=== PATIENT | male | born 1940 | race African-American/Black ===

== ENCOUNTER 2017-10-28 13:26 | Inpatient (IN) | payer OTHER ==
[~2017-10-28] VITALS: Ht 170.2 cm; Wt 93.6 kg
[2017-10-28] MEDS ORDERED: PIPERACILLIN/TAZO/PMX 3.375GM 50 ML IVPB ONE (14:00)
[2017-10-28] MEDS ORDERED: PLEASE ENTER ALLERGIES MC SCH (14:00)
[2017-10-28] MEDS ORDERED: SODIUM CHLORIDE 0.9% 1,000ML IVBOLUS ONE ×2 (14:00→21:30)
[2017-10-28 14:08] LABS: MD YES; MEAN CORPUSCULAR HEMOGLOBIN 28.8 pg (27.5-34.5); MEAN CORPUSCULAR HGB CONC 32.7 g/dL (33.2-36.2); MEAN CORPUSCULAR VOLUME 87.9 fL (81-97); MEAN PLATELET VOLUME 9.6 fL (7.4-10.4); PLATELET COUNT 141 x10^3/uL (130-400); RED BLOOD COUNT 5.53 x10^6/uL (4.38-5.82); RED CELL DISTRIBUTION WIDTH 14.7 % (9.4-14.8)
[2017-10-28 14:18] LABS: ALBUMIN 1.6 g/dL (3.4-5.0); ANION GAP 24 mmol/L (5-15); CALCIUM 8.3 mg/dL (8.5-10.1); CHLORIDE 93 mmol/L (98-107)
[2017-10-28 14:21] LABS: ALANINE AMINOTRANSFERASE 94 U/L (12-78); BILIRUBIN,TOTAL 7.4 mg/dL (0.2-1.0); CREATININE 3.07 mg/dL (0.7-1.3); TOTAL PROTEIN 6.3 g/dL (6.4-8.2)
[2017-10-28 14:22] LABS: ALKALINE PHOSPHATASE 663 U/L (45-117); CREATINE KINASE, TOTAL 94 U/L (39-308)
[2017-10-28 14:23] LABS: SALICYLATE LEVEL < 1.7 mg/dL (2.8-20.0)
[2017-10-28 14:24] LABS: ACETAMINOPHEN < 2 mcg/mL (10-30); TROPONIN I 0.158 ng/mL (0.000-0.045)
[2017-10-28 14:28] LABS: INTERNATIONAL NORMALIZED RATIO 1.23 (0.93-1.1); PROTHROMBIN TIME 12.6 Seconds (9.6-11.5)
[2017-10-28 14:30] LABS: ACETONE, SERUM Negative (Negative)
[2017-10-28] MEDS ORDERED: PIPERACILLIN/TAZO/PMX 3.375GM 50 ML ONE (14:33)
[2017-10-28] MEDS ORDERED: NS + 40MEQ KCL 1,000 ML IV ONE (14:37)
[2017-10-28 14:57] LABS: BANDS%(MANUAL) 29 % (0-7); LYMPH#(MANUAL) 0.35 x10^3/uL (1-3.4); LYMPHS% (MANUAL) 1 % (22-44); METAMYELOCYTES% (MANUAL) 2 % (0-1); MONOS% (MANUAL) 1 % (2-9); MYELOCYTES# (MANUAL) 0.35 x10^3/uL (0-0); MYELOCYTES% (MANUAL) 1 % (0-0); SEGS% (MANUAL) 66 % (42-75)
[2017-10-28 14:58] LABS: <RBC MORPHOLOGY> NORMAL; MONOS#(MANUAL) 0.35 x10^3/uL (0.3-2.7)
[2017-10-28 14:59] LABS: <PLATELET ESTIMATE> ADEQUATE; <PLT MORPHOLOGY> NORMAL PLT MORPH; PMNS WITH VACUOLES 1+; SMUDGE CELLS 1+; TOXIC GRAN 1+
[2017-10-28] MEDS: NS + 20MEQ KCL 1,000 ML IV SCH ×2 (14:59→18:58)
[2017-10-28] MEDS ORDERED: HEPARIN 5,000 UNITS/ML, 1ML SQ SCH (15:00)
[2017-10-28] MEDS ORDERED: SODIUM CHLORIDE 0.9%, 500ML IVBOLUS ONE (15:00)
[2017-10-28] MEDS ORDERED: NS + 40MEQ KCL 1,000 ML IV SCH (15:00)
[2017-10-28] MEDS ORDERED: PIPERACILLIN/TAZO 2.25 GM in SODIUM CHLORIDE 0.9% 50 ML IV SCH (15:00)
[2017-10-28] MEDS ORDERED: VANCOMYCIN PER PHARMACY MC PRN (15:00)
[2017-10-28] MEDS ORDERED: VANCOMYCIN PER PHARMACY IV ONE (15:00)
[2017-10-28] MEDS ORDERED: ONDANSETRON ODT 4 MG PO PRN (15:00)
[2017-10-28] MEDS ORDERED: BISACODYL 10 MG SUPP PR PRN (15:00)
[2017-10-28] MEDS ORDERED: NOREPINEPHRINE 4 MG in SODIUM CHLORIDE 0.9% 246 ML IV PRN ×2 (15:00→17:00)
[2017-10-28] MEDS ORDERED: ACETAMINOPHEN 325 MG TABLET PO PRN (15:00)
[2017-10-28] MEDS ORDERED: POLYETHYLENE GLYCOL 17 GM PACKET PO PRN (15:00)
[2017-10-28] MEDS ORDERED: VANCOMYCIN 1,500 MG in SODIUM CHLORIDE 0.9% 250 ML IV ONE (15:00)
[2017-10-28] MEDS ORDERED: LACTATED RINGERS 1,000 ML IVBOLUS ONE ×2 (15:30→17:00)
[2017-10-28] MEDS ORDERED: ONDANSETRON ODT 4 MG ONE (16:19)
[2017-10-28] MEDS ORDERED: HEPARIN 5,000 UNITS/ML, 1ML ONE (16:59)
[2017-10-28 18:18] LABS: MICROSCOPIC INDICATED
[2017-10-28] MEDS ORDERED: PHARMACOKINETIC MONITORING MC PRN (18:30)
[2017-10-28] MEDS ORDERED: HEPARIN 25,000 UNITS/500ML PMX 500 ML IV PRN (18:30)
[2017-10-28] MEDS ORDERED: HEPARIN 5,000 UNITS/ML, 1ML IV ONE (18:30)
[2017-10-28] MEDS ORDERED: HEPARIN 5,000 UNITS/ML, 1ML IV PRN (18:30)
[2017-10-28] MEDS ORDERED: PHARMACOKINETIC CONSULTATION MC ONE (18:30)
[2017-10-28 18:39] LABS: CULTURE INDICATED? YES
[2017-10-28] MEDS: INSULIN LISPRO 100 UNITS/ML, PEN SQ-INSULIN SCH ×2 (18:58→21:09)
[2017-10-28 18:59] LABS: AMPHETAMINE SCREEN, URINE Negative (Negative); BARBITURATE SCREEN, URINE Negative (Negative); BENZODIAZEPINE SCREEN, URINE Negative (Negative); CANNABINOID SCREEN, URINE Negative (Negative); COCAINE SCREEN, URINE Negative (Negative); METHADONE SCREEN, URINE Negative (Negative); OPIATE SCREEN, URINE Negative (Negative)
[2017-10-28 19:36] VITALS: BP 110/60
[2017-10-28] MEDS ORDERED: FAMOTIDINE 20 MG/2 ML IVPush SCH (21:00)
[2017-10-28] MEDS: PIPERACILLIN/TAZO/PMX 2.25GM 50 ML IV SCH (21:08)
[2017-10-28] MEDS: ONDANSETRON 2MG/ML, 2ML IVPush PRN (21:10)
[2017-10-28] MEDS ORDERED: VASOPRESSIN 100 UNIT in SODIUM CHLORIDE 0.9% 495 ML IV PRN (21:30)
[2017-10-28] MEDS: NOREPINEPHRINE 8 MG in SODIUM CHLORIDE 0.9% 242 ML IV PRN (21:46)
[2017-10-29] MEDS: NOREPINEPHRINE 8 MG in SODIUM CHLORIDE 0.9% 242 ML IV PRN (03:19)
[2017-10-29] MEDS ORDERED: SODIUM BICARBONATE 8.4% 150 MEQ in DEXTROSE 5% 1,000 ML IV SCH (03:30)
[2017-10-29] MEDS: PIPERACILLIN/TAZO/PMX 2.25GM 50 ML IV SCH (03:37)
[2017-10-29 04:00] VITALS: BP 96/66
[2017-10-29] MEDS: ONDANSETRON 2MG/ML, 2ML IVPush PRN (04:02)
[2017-10-29 04:50] LABS: MEAN CORPUSCULAR HEMOGLOBIN 28.3 pg (27.5-34.5); MEAN CORPUSCULAR HGB CONC 32.4 g/dL (33.2-36.2); MEAN CORPUSCULAR VOLUME 87.5 fL (81-97); MEAN PLATELET VOLUME 11.3 fL (7.4-10.4); PLATELET COUNT 109 x10^3/uL (130-400); RED BLOOD COUNT 4.82 x10^6/uL (4.38-5.82); RED CELL DISTRIBUTION WIDTH 15.4 % (9.4-14.8)
[2017-10-29 05:15] LABS: MD YES
[2017-10-29 05:17] LABS: <RBC MORPHOLOGY> NORMAL; BAND#(MANUAL) 11.62 x10^3/uL; BANDS%(MANUAL) 24 % (0-7); LYMPH#(MANUAL) 1.45 x10^3/uL (1-3.4); LYMPHS% (MANUAL) 3 % (22-44); METAMYELOCYTES# (MANUAL) 0.48 x10^3/uL (0-0); METAMYELOCYTES% (MANUAL) 1 % (0-1); PMNS WITH VACUOLES 1+; SEG#(MANUAL) 34.85 x10^3/uL (1.8-6.8); SEGS% (MANUAL) 72 % (42-75)
[2017-10-29 05:18] LABS: <PLATELET ESTIMATE> ADEQUATE; LARGE PLATELETS 1+; TOXIC GRAN 1+
[2017-10-29 05:47] LABS: ALANINE AMINOTRANSFERASE 394 U/L (12-78); ALBUMIN 1.3 g/dL (3.4-5.0); ANION GAP 22 mmol/L (5-15); CALCIUM 6.9 mg/dL (8.5-10.1); CHLORIDE 103 mmol/L (98-107); CREATININE 3.38 mg/dL (0.7-1.3)
[2017-10-29 05:55] LABS: ALKALINE PHOSPHATASE 488 U/L (45-117); BILIRUBIN,TOTAL 7.5 mg/dL (0.2-1.0); TOTAL PROTEIN 5.6 g/dL (6.4-8.2); VANCOMYCIN,RANDOM 14.8 mcg/mL
[2017-10-29] MEDS: NS + 20MEQ KCL 1,000 ML IV SCH (05:57)
[2017-10-29] MEDS ORDERED: SODIUM BICARB 8.4%, 50ML SYRINGE ONE (08:18)
[2017-10-29] MEDS ORDERED: SENNA/DOCUSATE TABLET PO SCH (09:00)
[2017-10-29] MEDS ORDERED: INSULIN LISPRO 100 UNITS/ML, PEN SQ-INSULIN SCH (09:00)
== END 2017-10-29 10:19 | disposition expired | DRG 871 ==
LOC: ED 13:49 → EDIP 14:59 → CCU 18:00
PROVIDERS: ADMIT Internal Medicine; ATTEND Internal Medicine
PROC: 0T9B70Z Drainage of Bladder with Drainage Device, Via Natural or Artificial Opening (ICD-10-PCS; principal; 2017-10-28)
PROC: 02H633Z Insertion of Infusion Device into Right Atrium, Percutaneous Approach (ICD-10-PCS; 2017-10-28)
DX: A41.9 Sepsis, unspecified organism (principal); J96.00 Acute respiratory failure, unspecified whether with hypoxia or hypercapnia; N17.0 Acute kidney failure with tubular necrosis; E43 Unspecified severe protein-calorie malnutrition; I21.4 Non-ST elevation (NSTEMI) myocardial infarction; R65.21 Severe sepsis with septic shock; E11.52 Type 2 diabetes mellitus with diabetic peripheral angiopathy with gangrene; B17.9 Acute viral hepatitis, unspecified; L03.116 Cellulitis of left lower limb; E87.1 Hypo-osmolality and hyponatremia; E87.4 Mixed disorder of acid-base balance; L03.115 Cellulitis of right lower limb; I82.433 Acute embolism and thrombosis of popliteal vein, bilateral; I82.412 Acute embolism and thrombosis of left femoral vein; E87.6 Hypokalemia; I25.10 Atherosclerotic heart disease of native coronary artery without angina pectoris; I46.8 Cardiac arrest due to other underlying condition; I77.1 Stricture of artery; Z66 Do not resuscitate; Z89.429 Acquired absence of other toe(s), unspecified side; Z99.3 Dependence on wheelchair; Z68.32 Body mass index [BMI] 32.0-32.9, adult
CPT/HCPCS: 31500; 36415; 36600; 51702; 99291; S0028; 70450; 71045; 76700; 80053; 80202; 80307; 80329; 81001; 82010; 82140; 82533; 82550; 82803; 82962; 83036; 83605; 83735; 83930; 84100; 84443; 84484; 85025; 85520; 85610; 87040; 87077; 87081; 87086; 87186; 93005; 93970; 96361; 96365; 96372; 96375; J1644; J2405; J2543; J3370; J3480; J7070; G0480; J1815; J7030; J7040; J7050; J7120